=== PATIENT | male | born 1960 | race Caucasian/White ===

== ENCOUNTER 2018-04-08 18:53 | Inpatient (IN) | payer OTHER ==
[~2018-04-08] VITALS: Ht 172.7 cm; Wt 76.2 kg
--- NOTE | 2018-04-08 19:02 | ED PSYCHIATRIC COMPLAINT ---
History of Present Illness General Chief Complaint: ETOH/Drug Related Complaint Stated Complaint: BIBA ETOH, +SI Source: patient Exam Limitations: no limitations Vital Signs & Intake/Output Vital Signs & Intake/Output Vital Signs Date Time Temp Pulse Resp B/P B/P Pulse O2 O2 Flow FiO2 Mean Ox Delivery Rate 04/09 1300 98.0 72 18 144/83 07/05 1242 98.0 72 18 144/83 97 07/05 1121 98.2 76 18 139/80 07/05 1121 98.2 76 18 139/80 94 07/05 0915 97.5 68 18 140/80 07/05 0911 97.5 68 18 140/80 98 Room Air 07/05 0700 97.5 71 18 157/98 07/05 0700 97.5 71 18 157/98 97 Room Air 07/05 0400 98.0 58 18 129/72 07/05 0400 97.8 58 18 129/72 98 Room Air 07/04 2215 97.7 83 20 141/79 98 Room Air 07/04 2105 97.7 83 18 141/79 07/04 1909 97.8 88 22 127/88 98 Room Air Allergies Coded Allergies: No Known Allergies (04/08/18) Triage Nurses Notes Reviewed? yes Onset: Gradual Duration: day(s): Timing: recent history Severity: mild Associated Symptoms: anxiety HPI: 57 YO gentleman presents with depression and etoh intoxcation. He was reported missing by a family member. The police were called. He was discovered and brought to the ED. He notes that he has been drinking alcohol, "is so depressed that he wants to ." He notes that his boyfriend 3 weeks ago of AIDS. He denies active suicidality, homicidality, hallucinations. He notes that he does not normally drink alcohol but that he has recently due to the of his boyfriend. (Fritz PIERCE,Remberto Presley) Reconcile Medications Cetirizine HCl (Zyrtec) 10 MG TABLET 1 TAB PO DAILY ALLERGIES (Reported) Dutasteride (Avodart) 0.5 MG CAPSULE 1 CAP PO DAILY UNKNOWN (Reported) Escitalopram Oxalate 20 MG TABLET 1 TAB PO DAILY MENTAL HEALTH (Reported) Gabapentin 100 MG CAPSULE 2 CAP PO TID UNKNOWN (Reported) Hydroxyzine Pamoate 50 MG CAPSULE 1 CAP PO TID PRN ANXIETY (Reported) Trazodone HCl 150 MG TABLET 1 TAB PO QPM PRN SLEEP (Reported) (Kat PIERCE,Jhon Quiñones) Past History Travel History Traveled to [place] past 21 day No Medical History Any Pertinent Medical History? none Surgical History Surgical History: none Family History Hx Contributory? No (Fritz PIERCE,Remberto Presley) Review of Systems Review of Systems Constitutional: Reports: no symptoms. EENTM: Reports: no symptoms. Respiratory: Reports: no symptoms. Cardiovascular: Reports: no symptoms. GI: Reports: no symptoms. Genitourinary: Reports: no symptoms. Musculoskeletal: Reports: no symptoms. Skin: Reports: no symptoms. Neurological/Psychological: Reports: no symptoms. Hematologic/Endocrine: Reports: no symptoms. Immunologic/Allergic: Reports: no symptoms. All Other Systems: Reviewed and Negative (Fritz PIERCE,Remberto Presley) Physical Exam Physical Exam General Appearance: tearful, anxious Head: atraumatic, normal appearance Eyes: Bilateral: normal appearance. Ears, Nose, Throat: normal pharynx Neck: normal inspection Respiratory: normal breath sounds, no respiratory distress Cardiovascular: regular rate/rhythm Gastrointestinal: soft Extremities: normal range of motion Neurological/Psychiatric: anxious, depressed affect, tearful, tangential Appearance/Memory/Insight: disheveled Behavoir/Eye Contact/Speech: cooperative Thoughts/Hallucinations: no apparent hallucination SAD PERSONS SAD PERSONS Response Value Male Sex? yes 1 Age <19 or >45 years? yes 1 Depression/Hopelessness? yes 2 Excessive Ethanol/Drug Use? yes 1 Rational Thinking Loss? yes 2 Single//? yes 1 Social Support? has no support 1 Total 9 SAD PERSONS Done? yes (Fritz PIERCE,Remberto Presley) Progress Differential Diagnosis: alcohol intoxication, depression vs other. Plan of Care: Orders Procedure Date/time Status Regular Diet 04/09 B Active Pathway - chart 04/09 0953 Active CIWA 04/08 2104 Active Continuous Observation Monitor 04/08 1902 Active URINE DRUG SCREEN FOR ER ONLY 04/08 1902 Complete ETHANOL 04/08 1902 Complete COMPREHENSIVE METABOLIC PANEL 04/08 1902 Complete CBC WITHOUT DIFFERENTIAL 04/08 1902 Complete ED CRISIS PSYCH CONSULT 04/08 1902 Active Current Medications Sig/Beka Start time Last Medication Dose Stop Time Status Admin Lorazepam 2 MG Q2P PRN 04/09 1000 UNVr 04/09 (Ativan) 1015 Lorazepam 1 MG Q2P PRN 04/09 1000 UNVr (Ativan) Laboratory Tests 04/08/182024: Urine Opiates Screen < 100, Methadone Screen < 40, Barbiturate Screen < 60, Ur Phencyclidine Scrn < 6.00, Amphetamines Screen < 100, U Benzodiazepines Scrn < 85, Urine Cocaine Screen < 50, Urine Cannabis Screen < 5.00 04/08/18 1933: Anion Gap 12, Estimated GFR > 60, BUN/Creatinine Ratio 18.8, Glucose 112 H, Calcium 8.6, Total Bilirubin 0.5, AST 32, ALT 35, Alkaline Phosphatase 51, Total Protein 6.7, Albumin 4.0, Globulin 2.7, Albumin/Globulin Ratio 1.5, CBC w Diff NO MAN DIFF REQ, RBC 4.79, MCV 85.8, MCH 29.8, MCHC 34.7, RDW 13.6, MPV 9.1, Gran % 40.6 L, Lymphocytes % 50.5, Monocytes % 7.0, Eosinophils % 1.4, Basophils % 0.5, Absolute Granulocytes 2.3, Absolute Lymphocytes 2.8, Absolute Monocytes 0.4, Absolute Eosinophils 0.1, Absolute Basophils 0, Serum Alcohol 342.0 Hand-Off Endorsed To: Kat PIERCE,Jhon Quiñones Endorsed Time: 0700 Pending: consult (Fritz PIERCE,Remberto Presley) Comments: 04/09/18 7:00am pt signed out to me by dr [facility]ung [facility]. 04/09/2018 9:52:13 AM Natalio wishes to have alcohol detox. He states he did have a seizure last year in a movie theater but is unclear if this was an alcohol related seizure or not. He says however that unpassed attempts to self detox he has experienced hallucination and severe tremors that would seem consistent with delirium tremens. I have spoken with case management about preauthorization for inpatient detoxification. (Kat PIERCE,Jhon Quiñones) Departure Departure Disposition: STILL A PATIENT Condition: Stable Departure Forms: Customer Survey General Discharge Information (Fritz PIERCE,Remberto Presley) Departure Clinical Impression Primary Impression: Depression Qualifiers: Depression Type: unspecified Qualified Code: F32.9 - Major depressive disorder, single episode, unspecified Secondary Impressions: Alcohol intoxication Qualifiers: Complication of substance-induced condition: uncomplicated Qualified Code: F10.920 - Alcohol use, unspecified with intoxication, uncomplicated Alcohol withdrawal Qualifiers: Complication of substance-induced condition: uncomplicated Qualified Code: F10.230 - Alcohol dependence with withdrawal, uncomplicated Admission Note Spoke With: Bridget Yap MD Documentation of Exam: Documentation of any treatments & extenuating circumstances including Concerns Regarding Discharge (functional status, medication knowledge or non-compliance, living conditions, etc.) that warrant an admission rather than observation: Continued alcohol consumption places the patient at high risk of pancreatitis, pancreatic failure, liver failure and cirrhosis. In order to avoid this the patient will need to cease drinking alcohol. Patient's alcohol use places pt at high risk of seizures and delirium tremens during cessation. Patient will be at high risk of withdrawal seizures and delirium tremens (both of which can be fatal) for up to 5 days after stopping alcohol. pt will require IV Ativan to prevent these complications. pt is therefore a very poor candidate for outpatient treatment given the above concerns and treatment needs. Pt will require a multiple day hospitalization. (Kat PIERCE,Jhon Quiñones) Critical Care Note Critical Care Note Critical Care Time: 30-74 min (Jhon Stephens MD)
[2018-04-08 19:40] LABS: ABSOLUTE BASOPHIL COUNT 0 /CUMM (0.0-0.2); ABSOLUTE EOSINOPHIL COUNT 0.1 /CUMM (0.0-0.7); ABSOLUTE GRANULOCYTE CT 2.3 /CUMM (1.4-6.5); ABSOLUTE LYMPH COUNT 2.8 /CUMM (1.2-3.4); ABSOLUTE MONOCYTE COUNT 0.4 /CUMM (0.10-0.60); BASOPHIL % 0.5 % (0.0-2.0); EOSINOPHIL % 1.4 % (0-5); GRANULOCYTE % 40.6 % (42.2-75.2); HEMATOCRIT 41.1 % (42-52); MEAN CORPUSCULAR HGB 29.8 PG (27.0-31.0); MEAN CORPUSCULAR HGB CONC 34.7 G/DL (33.0-37.0); MEAN CORPUSCULAR VOLUME 85.8 FL (80.0-94.0); MEAN PLATELET VOLUME 9.1 FL (7.4-10.4); PLATELET COUNT 165 /CUMM (130-400); RBC DISTRIBUTION WIDTH 13.6 % (11.5-14.5); RED BLOOD CELL CT 4.79 /CUMM (4.70-6.10); WHITE BLOOD CELL COUNT 5.5 /CUMM (4.8-10.8)
[2018-04-08 21:05] VITALS: BP 141/79
--- NOTE | 2018-04-08 21:37 | ED PSY CRISIS COLLATERAL NOTE ---
See Addendum Collateral Note Collateral Note Family/Inform/Christophe Contacts: Viv Melissa [phone]. Viv is the friend with whom Natalio has been staying with. She reported Natalio called her on Friday and had gotten out of a sober house (he told her other residents were using and he 'couldn't stay there' ) but had nowhere else to go. She allowed him to temporarily stay at her home. She reported her own 25 year old son had a few months ago and she had a space for him to stay in but she needed to clean out her son's belongings first. She said he needed to agree to respect her son's space and belongings ( he subsequently destroyed the space when he stayed there). He has been in and out of rehabs for about 4 years. Natalio showed up to her home unannounced on Friday with "clothes in his car that he asked to leave there" and reported he was going to go back to his sister's. He spent the day with her in her home and he began cleaning her kitchen obsessively. She went grocery shopping and left him in her home with her children and her 4 year old son said "he threw out my toy" and she looked in the garbage and he threw out all her important papers and , she later discovered, her son's belongings. She also found an empty bottle of vodka. She confronted him about this. He stayed at her home overnight and she could hear him vomiting all night. When asked, she denied that he could be suicidal and stated "he told me he wanted to live". She asked to look at his medications and she found that he had been using Percocets. Viv had planned to ask him to leave her house today and go to the hospital but he left. She wants him to know she knows he is hear and she wants him to call her at the number listed above.
[2018-04-09] VITALS (10 sets, daily range): BP systolic 129–157; BP diastolic 72–98
[2018-04-09] MEDS ORDERED: ZYRTEC10 M3 PO (13:22)
[2018-04-09] MEDS ORDERED: HYDROXYZINE PAM50 M1 PO (13:23)
[2018-04-09] MEDS ORDERED: GABAPENTIN100 M2 PO (13:23)
[2018-04-09] MEDS ORDERED: TRAZODONE HCL150 M1 PO (13:24)
[2018-04-09] MEDS ORDERED: ESCITALOPRAM OX20 MG PO (13:24)
[2018-04-09] MEDS ORDERED: AVODART0.5 M1 PO (13:24)
--- NOTE | 2018-04-09 13:48 | History & Physical ---
Aakash Torres MD 04/09/18 1347: General Information and HPI History of Present Illness: Mr. Lacey is a 57-year-old male with past medical history of depression, anxiety, and EtOH abuse who presents requesting rehab for his alcohol issues. The patient notes that he has started drinking in the past month. He has been a problem for him for about 6 years and his longest period of sobriety has been 8 months. He does well at rehab but then wants to drink immediately. He was recently in a sober house and then left because he had arguments with some of his housemates. He started drinking the same day. He was drinking about 1 gallon of vodka per day. He then went to a friend's house and continue to drink there. His family eventually get in contact with him and sends an ambulance to have him brought in for further evaluation. He currently endorses tiredness and vomiting/nausea but has no chest pain, shortness of breath, diarrhea, dull pain, dysuria, or rash. He is a family history of alcoholism in his mother and father. He has used cocaine in the past but not recently, snorting but never injecting any drugs. Allergies/Medications Allergies: Coded Allergies: No Known Allergies (04/08/18) Home Med list Cetirizine HCl (Zyrtec) 10 MG TABLET 1 TAB PO DAILY ALLERGIES (Reported) Dutasteride (Avodart) 0.5 MG CAPSULE 1 CAP PO DAILY UNKNOWN (Reported) Escitalopram Oxalate 20 MG TABLET 1 TAB PO DAILY MENTAL HEALTH (Reported) Gabapentin 100 MG CAPSULE 2 CAP PO TID UNKNOWN (Reported) Hydroxyzine Pamoate 50 MG CAPSULE 1 CAP PO TID PRN ANXIETY (Reported) Trazodone HCl 150 MG TABLET 1 TAB PO QPM PRN SLEEP (Reported) Past History Travel History Traveled to [place] past 21 day No Medical History Neurological: NONE EENT: NONE Cardiovascular: NONE Respiratory: NONE Gastrointestinal: NONE Hepatic: NONE Renal: NONE Musculoskeletal: NONE Psychiatric: NONE Endocrine: NONE Blood Disorders: NONE Cancer(s): NONE MOLD PULLER/Reproductive: NONE Isolation History: Standard Surgical History Surgical History: none Past Family/Social History Psychosocial History ETOH Use: heavy use Illicit Drug Use: denies illicit drug use Review of Systems Review of Systems Constitutional: Reports: no symptoms. EENTM: Reports: no symptoms. Cardiovascular: Reports: no symptoms. Respiratory: Reports: no symptoms. GI: Reports: no symptoms. Genitourinary: Reports: no symptoms. Musculoskeletal: Reports: no symptoms. Skin: Reports: no symptoms. Neurological/Psychological: Reports: see HPI. Hematologic/Endocrine: Reports: no symptoms. Immunologic/Allergic: Reports: no symptoms. All Other Systems: Reviewed and Negative Exam & Diagnostic Data Last 24 Hrs of Vital Signs/I&O Vital Signs Date Time Temp Pulse Resp B/P B/P Pulse O2 O2 Flow FiO2 Mean Ox Delivery Rate 04/09 1300 98.0 72 18 144/83 07/05 1242 98.0 72 18 144/83 97 07/05 1121 98.2 76 18 139/80 07/05 1121 98.2 76 18 139/80 94 07/05 0915 97.5 68 18 140/80 07/05 0911 97.5 68 18 140/80 98 Room Air 07/05 0700 97.5 71 18 157/98 07/05 0700 97.5 71 18 157/98 97 Room Air 07/05 0400 98.0 58 18 129/72 07/05 0400 97.8 58 18 129/72 98 Room Air 07/04 2215 97.7 83 20 141/79 98 Room Air 07/04 2105 97.7 83 18 141/79 07/04 1909 97.8 88 22 127/88 98 Room Air Physical Exam General Appearance Alert, Oriented X3, Cooperative, No Acute Distress Cardiovascular Regular Rate, Normal S1, Normal S2 Lungs Clear to Auscultation Abdomen Normal Bowel Sounds, Soft, No Tenderness Extremities No Edema, Normal Pulses, No Tenderness/Swelling Last 24 Hrs of Labs/Estevan: Laboratory Tests 04/08/182024: Urine Opiates Screen < 100, Methadone Screen < 40, Barbiturate Screen < 60, Ur Phencyclidine Scrn < 6.00, Amphetamines Screen < 100, U Benzodiazepines Scrn < 85, Urine Cocaine Screen < 50, Urine Cannabis Screen < 5.00 04/08/18 193: Anion Gap 12, Estimated GFR > 60, BUN/Creatinine Ratio 18.8, Glucose 112 H, Calcium 8.6, Total Bilirubin 0.5, AST 32, ALT 35, Alkaline Phosphatase 51, Total Protein 6.7, Albumin 4.0, Globulin 2.7, Albumin/Globulin Ratio 1.5, CBC w Diff NO MAN DIFF REQ, RBC 4.79, MCV 85.8, MCH 29.8, MCHC 34.7, RDW 13.6, MPV 9.1, Gran % 40.6 L, Lymphocytes % 50.5, Monocytes % 7.0, Eosinophils % 1.4, Basophils % 0.5, Absolute Granulocytes 2.3, Absolute Lymphocytes 2.8, Absolute Monocytes 0.4, Absolute Eosinophils 0.1, Absolute Basophils 0, Serum Alcohol 342.0 Assessment/Plan Assessment: Mr. Lacey is a 57-year-old male with past medical history of depression, anxiety, and EtOH abuse who presents requesting rehab for his alcohol issues. On presentation, vital signs were T 97.8, HR 80, RR 22, BP 127/88, saturating 90 % on room air. Laboratories were specific and for normal CBCs, sodium 147, carbon dioxide 31, glucose 112, negative LFTs, alcohol level 342. He will be admitted to general medicine and treated for the following problems: 1. Alcohol withdrawal #Alcohol withdrawal: Patient reports drinking about a gallon of vodka per day and has withdrew in the past. Expect that he will draw again this time. He will need to go to rehabilitation after medical stabilization. -[facility] protocol -Alcoholic vitamins -Psych and social work consult -Obtain records from [facility] #Chronic medical problems: -Continue other home medications DVT prophylaxis with enoxaparin Regular diet Full code As Ranked By This Provider Problem List: 1. Alcohol withdrawal Qualifiers Complication of substance-induced condition: uncomplicated Qualified Code: F10.230 - Alcohol dependence with withdrawal, uncomplicated Core Measures/Misc (06/22) Acute Coronary Syndrome ACS Diagnosis: No Congestive Heart Failure Congestive Heart Failure Diagnosis No Cerebrovascular Accident CVA/TIA Diagnosis: No VTE (View Protocol) VTE Risk Factors Age>40 No Mechanical VTE Prophylaxis d/t N/A MechProphylax Ordered No VTE Pharm Prophylaxis d/t NA PharmProphylax ordered Sepsis (View protocol) Sepsis Present: No If YES complete Sepsis Event Note If YES complete Sepsis Event Note Andres Mcnulty MD 04/09/18 3808: Core Measures/Misc (06/22) Sepsis (View protocol) If YES complete Sepsis Event Note If YES complete Sepsis Event Note Attending MD Review Statement Attending Statement Attending MD Statement: examined this patient, discuss w/resident/PA/OIL REFINER, agreed w/resident/PA/OIL REFINER, reviewed EMR data (avail), discussed with nursing, amended to note Attending Assessment/Plan: The patient is a 57 yo male with h/o anxiety/depression and EtOH dependence abuse (s/p multiple detoxes- some residential) with the last 2 admit having been at [facility]. He presents requesting another detox. He drinks 1 pint of vodka daily. Denies any recreational drugs. Physical Exam: VS: T 97.8, P 88, R 22, Bp 144/83,PO 97% RA HEENT: eyes- PERRLA, EOMI- non-icteric sclera jaleesa- dry mucosa Neck: no JVD/bruits Abs: BS+, soft, NT Ext: no edema, pulses 2+ Neuro- non-focal, gait not tested. Labs/Tests- as above Impression/Plan: #Alcohol Dependence and Withdrawal- patient requesting detox. Has been in multiple programs and was detoxed twice at [facility] recently. Also has been in [place] and had been in residential programs. He is frustrated due to his lack of ability to stop. He lives in [place], [place]. Plan: Admit to general Medicine Ativan 2 mg q6h and prn based on CIWA. Thiamine, MVI, folate, etc. as per protocol. Agree with Gabapentin/Hydroxzine (he was on these). Get records from [facility]. Social service consult. #Depression/Anxiety- has been longstanding. Plan: Continue Trazodone and Escitalopram. #Allergic Rhinitis- on Zyrtec. Plan: Continue zyrtec. #BPH- on Avodart. Plan: Continue Avodart.
--- NOTE | 2018-04-09 23:06 | Admission Certification ---
Admission Certification Certification Statement - As attending physician, I certify that at the time of - admission, based on clinical presentation, severity of - symptoms, need for further diagnostic testing and - therapeutic interventions, and risk of adverse outcomes - without in-hospital treatment, in my clinical assessment, - this patient requires an acute hospital stay for a minimum - of two nights or longer. I have also considered psychsocial - factors such as support system, advanced age, financial - issues, cognitive issues, and failed out-patient treatments, - past re-admission history, safety of patient, and lack of - compliance as applicable. Specific rationale supporting this admission is: The patient presents requesting alcohol detox. He has had multiple detoxes in past, last 2 at [facility] and were unsuccessful in resulting in significant periods of sobriety. Needs admit for CIWA protocol- Ativan 2 mg po q6h and prns based on CIWA scores. Needs social service consult.
[2018-04-10 05:41] VITALS: BP 134/80
--- NOTE | 2018-04-10 08:01 | PN- Housestaff ---
See Addendum Subjective Follow-up For: alcohol withdrawal/alcohol detox Complaints: sweats/chills overnight Subjective: Patient reports sweats and chills overnight but no other complaints. He states he feels his brain is very active at all times. He states in the past he has required multiple medications in order to sleep at night including antihistamines, trazodone, and gabapentin. He denies fever, chills, abdominal pain, chest pain, shortness of breath. He also denies any hallucinations: auditory or visual. Review of Systems Constitutional: Reports: see HPI. Objective Last 24 Hrs of Vital Signs/I&O Vital Signs Date Time Temp Pulse Resp B/P B/P Pulse O2 O2 Flow FiO2 Mean Ox Delivery Rate 04/10 1341 98.5 71 20 136/84 97 Room Air 07/06 0541 98.2 69 20 134/80 96 Room Air 07/05 2120 98.5 70 16 142/90 94 Room Air 07/05 1800 97.6 60 16 136/80 07/05 1737 97.6 60 16 136/80 95 Room Air 07/05 1709 97.6 79 18 156/94 96 Room Air 07/05 1500 98.2 70 20 140/80 07/05 1500 98.2 70 20 140/80 96 Room Air Intake & Output 07/06 1600 07/06 0800 07/06 0000 Intake Total 240 120 Output Total Balance 240 120 Intake, Oral 240 120 Patient 168 lb Weight Weight Bed scale Measurement Method Physical Exam General Appearance: Alert, Oriented X3, Cooperative, No Acute Distress Skin: No Rashes Skin Temp/Moisture Exam: Warm/Dry HEENT: Atraumatic, PERRLA Neck: Supple Cardiovascular: Regular Rate, Normal S1, Normal S2 Lungs: Clear to Auscultation, Normal Air Movement Abdomen: Normal Bowel Sounds, Soft, No Tenderness Extremities: No Edema, Normal Pulses Assessment/Plan Assessment: 57-year-old male with a past medical history of depression, anxiety, and alcohol abuse. He states he has been hospitalized multiple times for alcohol detox with the last time in April [address] [facility]. He states he tends to go on alcohol binges every 6 weeks. He drinks vodka to the quantity of 1 gallon per day per the patien. He also admits to occasional cocaine use in order to stay awake to continue drinking he states his last cocaine use was about 3 weeks ago. #ETOH withdrawal/detox -CIWA score 8, 0 overnight -Thiamine/folate/multivitamin -hydroxyzine #Chronic illnesses -continue home medications DVT prophylaxis: ALPS/lovenox/Ambulation Problem List: 1. Alcohol intoxication 2. Alcohol withdrawal Pain Ratin Pain Location: none Pain Goal: Remain pain free Pain Plan: see a/p Tomorrow's Labs & Rationales: none
[2018-04-10 13:41] VITALS: BP 136/84
[2018-04-10 21:18] VITALS: BP 140/82
[2018-04-11 06:12] VITALS: BP 110/70
--- NOTE | 2018-04-11 09:00 | PN- Housestaff ---
Pauly Alvarezarron 04/11/18 0849: Subjective Follow-up For: Alcohol withdrawal Complaints: no complaints Subjective: Patient seen and examined at bedside. Patient had just gotten off the phone with [facility], is requesting referral for [facility]. Patient denies any symtpoms of withdrawal, denies anxiety, cravings, irritabiility, hallucinations, fever, night sweats or chills. Patient states he had his breakfast and is tolerating meals. Denies N/V. Review of Systems Constitutional: Denies: chills, diaphoresis, fever. EENTM: Denies: visual changes. Cardiovascular: Denies: chest pain, palpitations. Respiratory: Denies: cough, hemoptysis, short of breath. Gastrointestinal: Denies: abdominal pain, constipation, diarrhea, nausea, vomiting. Neurological/Psychological: Denies: anxiety, depressed, emotional problems, paresthesia, tingling, tremors. Objective Last 24 Hrs of Vital Signs/I&O Vital Signs Date Time Temp Pulse Resp B/P B/P Pulse O2 O2 Flow FiO2 Mean Ox Delivery Rate 04/11 1600 97.9 69 18 114/68 07 1422 97.9 69 18 114/68 97 Room Air 04/11 0800 Room Air 04/11 0612 98.1 64 18 110/70 95 Room Air 04/10 2118 98.5 64 20 140/82 97 Room Air Intake & Output 04/11 1600 0707 0800 04/11 0000 Intake Total 480 120 265 Output Total Balance 480 120 265 Intake, IV 20 25 Intake, Oral 480 100 240 Physical Exam General Appearance: Alert, Oriented X3, Cooperative Skin: No Rashes HEENT: Atraumatic, EOMI Neck: Supple, No LAD Cardiovascular: Regular Rate, Normal S1, Normal S2 Lungs: Clear to Auscultation, Normal Air Movement Abdomen: Normal Bowel Sounds, Soft, No Tenderness Neurological: Normal Gait, Normal Speech Assessment/Plan Assessment: 57-year-old male with a past medical history of depression, anxiety, and alcohol abuse. He states he has been hospitalized multiple times for alcohol detox with the last time in April 2017 at [facility]. He states he tends to go on alcohol binges every 6 weeks. He drinks vodka to the quantity of 1 gallon per day per the patien. He also admits to occasional cocaine use in order to stay awake to continue drinking he states his last cocaine use was about 3 weeks ago. #ETOH withdrawal/detox -CIWA score 8, 0 overnight -continue Thiamine/folate/multivitamin -continue hydroxyzine #Chronic illnesses -continue home medications DVT prophylaxis: ALPS/lovenox/Ambulation Patient looking for referral to [facility] for rehab, will follow up with case management. Problem List: 1. Alcohol withdrawal Pain Ratin Pain Location: n/a Pain Goal: Remain pain free Pain Plan: n/a Tomorrow's Labs & Rationales: none America Rodriges MD 04/11/18 1733: Attending MD Review Statement Attending Statement Attending MD Statement: examined this patient, discuss w/resident/PA/SANITARY ENGINEERING TEACHER, agreed w/resident/PA/SANITARY ENGINEERING TEACHER, reviewed EMR data (avail) Attending Assessment/Plan: 57M PMH anxiety/depression and EtOH dependence abuse (s/p multiple detoxes- some residential) with the last 2 admit having been at [facility] admitted with alcohol withdrawal, placed on Ativan PRN, max CIWA was 11 overnight, currently asymptomatic with no active signs of withdrawal. 1. Alcohol withdrawal, uncomplicated Plan - Continue on general medicine - Continue PRN Ativan - Social work and case management for rehab placement upon discharge - Continue home medications - DVT PPx - No labs tomorrow
[2018-04-11 14:22] VITALS: BP 114/68
[2018-04-11 16:00] VITALS: BP 114/68
[2018-04-11 21:32] VITALS: BP 116/78
[2018-04-12 06:23] VITALS: BP 98/68
[2018-04-12 08:00] VITALS: BP 98/68
--- NOTE | 2018-04-12 09:35 | PN- Housestaff ---
Placido Alvarez 04/12/18 0930: Subjective Follow-up For: Alcohol withdrawal Complaints: no complaints Subjective: Patient seen and examined at bedside. Has no c/o. Is tolerating his diet, denies hot flashes post meal, N/V. Last BM was yesterday, normal for patient. Patient expressed desire to go to rehab particularly at [facility], states he has been to [facility] and [facility] previously and did not particularly enjoy them. Denies cravings, irritabliity, agitation, endorses anxiety because of what he knows he has to do in the future, states it resolves with gabapentin and closing his eyes and resting. Review of Systems Constitutional: Denies: chills, diaphoresis, fever. EENTM: Denies: visual changes. Cardiovascular: Denies: chest pain, palpitations. Respiratory: Denies: cough, short of breath. Gastrointestinal: Denies: abdominal pain, constipation, diarrhea, nausea, vomiting. Neurological/Psychological: Reports: anxiety. Objective Last 24 Hrs of Vital Signs/I&O Vital Signs Date Time Temp Pulse Resp B/P B/P Pulse O2 O2 Flow FiO2 Mean Ox Delivery Rate 04/12 0800 60 18 98/68 07/08 0623 98.4 60 18 98/68 92 07/07 2132 98.3 68 18 116/78 95 /07 1600 97.9 69 18 114/68 07/07 1422 97.9 69 18 114/68 97 Room Air Physical Exam General Appearance: Alert, Oriented X3, Cooperative Skin: No Rashes HEENT: Atraumatic, PERRLA, EOMI Neck: Supple, No LAD Cardiovascular: Regular Rate, Normal S1, Normal S2 Lungs: Clear to Auscultation, Normal Air Movement Abdomen: Normal Bowel Sounds, Soft, No Tenderness Extremities: No Cyanosis, No Edema, Normal Pulses Assessment/Plan Assessment: 57-year-old male with a past medical history of depression, anxiety, and alcohol abuse. He states he has been hospitalized multiple times for alcohol detox with the last time in April 2017 at [facility]. He states he tends to go on alcohol binges every 6 weeks. He drinks vodka to the quantity of 1 gallon per day per the patien. He also admits to occasional cocaine use in order to stay awake to continue drinking he states his last cocaine use was about 3 weeks ago. #ETOH withdrawal/detox -CIWA 0 overnight, 1 dose of ativan given -continue Thiamine/folate/multivitamin -continue hydroxyzine #Chronic illnesses -continue home medications DVT prophylaxis: ALPS/lovenox/Ambulation Discussed patient choice for Rehab ([facility]) with case management, should have bed for patient tomorrow. Problem List: 1. Alcohol withdrawal Pain Ratin Pain Location: n/a Pain Goal: Remain pain free Pain Plan: none Tomorrow's Labs & Rationales: none DVT/Prophylaxis: America Decker MD 04/12/18 1456: Attending MD Review Statement Attending Statement Attending MD Statement: examined this patient, discuss w/resident/PA/GLUE REEL OPERATOR, agreed w/resident/PA/GLUE REEL OPERATOR, reviewed EMR data (avail) Attending Assessment/Plan: 57M PMH anxiety/depression and EtOH dependence abuse (s/p multiple detoxes- some residential) with the last 2 admit having been at [facility] admitted with alcohol withdrawal, placed on Ativan PRN, currently asymptomatic with no active signs of withdrawal. 1. Alcohol withdrawal, uncomplicated Plan - Continue on general medicine - Continue PRN Ativan - Social work and case management for rehab placement upon discharge - Continue home medications - DVT PPx - No labs tomorrow
[2018-04-12 14:19] VITALS: BP 104/77
[2018-04-12 20:53] VITALS: BP 129/82
[2018-04-12 22:00] VITALS: BP 129/82
[2018-04-13] VITALS: BP 129/82
[2018-04-13 04:00] VITALS: BP 116/70
[2018-04-13 06:00] VITALS: BP 112/61
[2018-04-13 06:54] VITALS: BP 112/61
--- NOTE | 2018-04-13 07:18 | PN- Housestaff ---
See Addendum Subjective Follow-up For: etoh detox Complaints: no complaints Subjective: Patient states yesterday and today are his best days. He reports milds chills/ sweats over the weekend that have resolved as of yesterday. He denies fever, chills, n/v/d, chest pain, SOB. Review of Systems Constitutional: Reports: see HPI. Objective Last 24 Hrs of Vital Signs/I&O Vital Signs Date Time Temp Pulse Resp B/P B/P Pulse O2 O2 Flow FiO2 Mean Ox Delivery Rate 04/13 0654 98.0 56 18 112/61 97 / 0600 98.0 56 18 112/61 / 0400 98.0 60 18 116/70 / 0000 98.2 70 18 129/82 /08 2200 98.2 70 18 129/82 /08 2053 98.2 70 18 129/82 96 / 1419 98.0 75 18 104/77 93 Room Air 04/12 0800 60 18 98/68 Intake & Output 04/13 0800 / 0000 04/12 1600 Intake Total 120 800 Output Total Balance 120 800 Intake, Oral 120 800 Number 0 Bowel Movements Physical Exam General Appearance: Alert, Oriented X3, Cooperative, No Acute Distress Skin: No Rashes Skin Temp/Moisture Exam: Warm/Dry HEENT: Atraumatic, PERRLA Neck: Supple Cardiovascular: Regular Rate, Normal S1, Normal S2, No Murmurs Lungs: Clear to Auscultation, Normal Air Movement Abdomen: Normal Bowel Sounds, Soft, No Tenderness Neurological: Normal Speech, Normal Tone, Sensation Intact Extremities: No Cyanosis, No Edema, Normal Pulses Vascular: Normal Pulses, Pulses Symmetrical Assessment/Plan Assessment: 57-year-old male with a past medical history of depression, anxiety, and alcohol abuse. He states he has been hospitalized multiple times for alcohol detox with the last time in April 2017 at [facility]. He states he tends to go on alcohol binges every 6 weeks. He drinks vodka to the quantity of 1 gallon per day per the patien. He also admits to occasional cocaine use in order to stay awake to continue drinking he states his last cocaine use was about 3 weeks ago. Social work has been involved with the patient's case and working on placement at [facility] #ETOH withdrawal/detox -CIWA score 10 @ 22:00 for anxiety and agitation-however patient did not require a dose of ativan, 0 the rest of the night -Thiamine/folate/multivitamin -hydroxyzine -plan to dc to [facility] if bed available. SW helping with this arrangement #Chronic illnesses -continue home medications -Will refer to Dr. Morton for outpatient follow up and establish care as PCP DVT prophylaxis: ALPS/lovenox/Ambulation Problem List: 1. Alcohol intoxication 2. Alcohol withdrawal 3. Depression Pain Ratin Pain Location: none Pain Goal: Remain pain free Pain Plan: see a/p Tomorrow's Labs & Rationales: none
[2018-04-13] MEDS ORDERED: ONE DAILY MULT1 EAC2 PO ×2 (08:23→11:16)
[2018-04-13] MEDS ORDERED: VITAMIN B-1100 MG PO ×2 (08:23→11:16)
--- NOTE | 2018-04-13 10:02 | Discharge Summary ---
Visit Information Visit Dates Admission Date: 04/09/18 Discharge Date: 04/13/18 Hospital Course Course Attending Physician: Andres Mcnulty MD Primary Care Physician: Devaughn Contreras MD [facility] Hospital Course: Mr. Lacey is a 57-year-old male with a past medical history of depression, anxiety , and alcohol abuse. He stated he had been hospitalized multiple times for alcohol detox with the last time in April 2017 at [facility]. He stated he tends to go on alcohol binges every 6 weeks. He drinks vodka to the quantity of 1 gallon per day per the patien. He also admitted to occasional cocaine use in order to stay awake to continue drinking he states his last cocaine use was about 3 weeks ago. He was admitted to the general medicine floor for the following: Problems: 1. ETOH withdrawal/detox 2. H/O depression/anxiety Admission Data: Vital signs were T 97.8, HR 80, RR 22, BP 127/88, saturating 90 % on room air. Laboratories were specific and for normal CBCs, sodium 147, carbon dioxide 31, glucose 112, negative LFTs, alcohol level 342. #ETOH withdrawal/detox -He was managed with CIWA protocol until no longer requiring ativan. He was given thiamine/folate/multivitamin and hydroxyzine. He was followed by psych and social work: assisted with placement for rehab. #Chronic illnesses including anxiety/depression-he was continued on his home medication doses. He remained stable throughout his hospital course and is no longer requiring benzodiazepines. He is stable for discharge and states he will move to [place] and enter rehab there. Allergies: Coded Allergies: No Known Allergies (04/08/18) Disposition Summary Disposition Principal Diagnosis: etoh detox Additional Diagnosis: etoh withdrawal Discharge Disposition: home or self care Discharge Instructions General Discharge Information Code Status: Full Code Patient's Diet: regular Patient's Activity: as tolerated Follow-Up Instructions/Appts: Patient to follow up with his PCP as an outpatient and enter rehab upon moving to [place] Medications at Discharge Discharge Medications: Continue taking these medications: Cetirizine HCl (Zyrtec) 10 MG TABLET 1 Tablet ORAL DAILY Comments: NOT GIVEN IN HOSPITAL Hydroxyzine Pamoate (Hydroxyzine Pamoate) 50 MG CAPSULE 1 Capsule ORAL THREE TIMES DAILY as needed for ANXIETY Comments: Last Taken:04/12/18 Time:6:39 PM Gabapentin (Gabapentin) 100 MG CAPSULE 2 Capsule ORAL THREE TIMES DAILY Comments: Last Taken:04/13/18 Time:8:33 AM Dutasteride (Avodart) 0.5 MG CAPSULE 1 Capsule ORAL DAILY Comments: NOT GIVEN IN HOSPITAL Trazodone HCl (Trazodone HCl) 150 MG TABLET 1 Tablet ORAL Every night as needed for SLEEP Comments: Last Taken:04/12/18 Time:11:06 PM Escitalopram Oxalate (Escitalopram Oxalate) 20 MG TABLET 1 Tablet ORAL DAILY Comments: Last Taken:04/13/18 Time:08:33 AM Start taking the following new medications: Folic Acid (Folic Acid) 1 MG TABLET 1 Milligram ORAL DAILY Qty = 30 No Refills Instructions: . Comments: Last Taken:04/13/18 Time:8:33 AM Thiamine HCl (Vitamin B-1) 100 MG TABLET 100 Milligram ORAL DAILY Qty = 30 No Refills Instructions: . Comments: Last Taken:04/13/18 Time:8:33 AM Multivitamin (One Daily Multivitamin) 1 EACH TABLET 1 Tablet ORAL DAILY Qty = 30 No Refills Instructions: . Comments: Last Taken:04/13/18 Time:8:33 AM Copies To: Ben PIERCE,Devaughn Dubon Attending MD Review Statement Documenting Attending: Andres Mcnulty MD Other Findings: The patient was seen and discussed with house staff, nursing, and case management/social service. He elected discharge to home with intention to move to [place] and attend detox there. Immediate follow-up with PCP.
[2018-04-13] MEDS ORDERED: FOLIC ACID1 M1 PO ×2 (10:36→11:16)
--- NOTE | 2018-04-13 10:37 | Patient Discharge Instructions ---
Discharge Instructions General Discharge Information You were seen/treated for: Alcohol withdrawal Watch for these problems: Fever, chest pain, shortness of breath Special Instructions: Please take all medications as directed. Please follow-up with primary care. Diet Continue normal diet: Yes Activity Full Activity/No Limits: Yes Acute Coronary Syndrome Inclusion Criteria At DC or during hospital stay patient has or had the following: ACS DIAGNOSIS No Discharge Core Measures Meds if any: Prescribed or Continued at Discharge Meds if any: NOT Prescribed or Continued at Discharge Congestive Heart Failure Inclusion Criteria At DC or during hospital stay patient has or had the following: CHF DIAGNOSIS No Discharge Core Measures Meds if any: Prescribed or Continued at Discharge Meds if any: NOT Prescribed or Continued at Discharge Cerebrovascular accident Inclusion Criteria At DC or during hospital stay patient has or had the following: CVA/TIA Diagnosis No Discharge Core Measures Meds if any: Prescribed or Continued at Discharge Meds if any: NOT Prescribed or Continued at Discharge Venous thromboembolism Inclusion Criteria VTE Diagnosis No VTE Type NONE VTE Confirmed by (Test) NONE Discharge Core Measures - Per Current guidelines, there needs to be overlap - treatment for the first 5 days of Warfarin therapy. - If discharged on Warfarin prior to 5 days of - overlap therapy, the patient will need to be - assessed for post discharge needs including - *Post discharge parental anticoagulation - *Warfarin and/or parental anticoagulation education - *Follow up date to check INR post discharge At least 5 days overlap therapy as Inpatient No Meds if any: Prescribed or Continued at Discharge Note: Overlap Therapy is Warfarin and Anticoagulant Meds if any: NOT Prescribed or Continued at Discharge
== END 2018-04-13 14:10 | DRG 775 ==
LOC: ERH 18:53 → 2NB 04-09 13:42 → ERHI 04-09 13:42 → ENRESERV 04-09 16:25 → ENTRNSPT 04-09 17:02 → EDTRNSPTSTS 04-09 17:30 → EDTRNSPT 04-09 17:30 → 2NB 04-09 17:32 → CMPTRNSPT 04-09 17:57 → ENPENDDIS 04-13 10:40 → 2NB 04-13 14:10
PROVIDERS: Pediatrics
DX: F10.239 Alcohol dependence with withdrawal, unspecified (principal); F10.229 Alcohol dependence with intoxication, unspecified; Y90.8 Blood alcohol level of 240 mg/100 ml or more; F41.9 Anxiety disorder, unspecified; F32.9 Major depressive disorder, single episode, unspecified; N40.0 Benign prostatic hyperplasia without lower urinary tract symptoms; J30.9 Allergic rhinitis, unspecified
CPT/HCPCS: 2NBSP; 36415; 80307; 82436; G0480; J1650; J3101; J3490